=== PATIENT | male | born 1990 | race Caucasian/White ===

== ENCOUNTER 2022-02-17 14:05 | Emergency (ER) | payer OTHER | END 2022-02-17 15:36 | disposition home or self-care (01) | LOC: FB.ED 14:05 | DX: S60.212A Contusion of left wrist, initial encounter (principal); Z79.899 Other long term (current) drug therapy; Z88.0 Allergy status to penicillin; W20.8XXA Other cause of strike by thrown, projected or falling object, initial encounter | CPT/HCPCS: 73110-LT; 99283 ==